=== PATIENT | male | born 1935 | race Caucasian/White ===

== ENCOUNTER 2021-01-29 10:59 | Inpatient (IN) ==
[2021-01-29] MEDS ORDERED: Ipratropium/Albuterol Neb 3 ML IH ONE (11:28)
[2021-01-29] MEDS ORDERED: methylPREDNISolone 125 MG/2 ML VIAL IVP ONE (11:28)
[2021-01-29 11:36] LABS: ABG Base Excess 5 mEq/L (-2 to 3); ABG HCO3 33 mEq/L (21-27); ABG Oxygen Saturation 97 % (95-98); ABG PCO2 58 mmHg (35-45); ABG PH 7.36 pH Units (7.32-7.45); ABG PO2 93 mmHg (85-104); ABG TCO2 34 mEq/L (20-26); Blood Gas VT 500 cc
[2021-01-29 11:48] LABS: Basophils % 0.2 %; Hemoglobin 17.1 g/dL (12.9-16.9); Immature Granulocytes % 0.5 % (0-4); Lymphocytes # 0.1 K/mcL (0.6-4.6); Lymphocytes % 0.6 %; Mean Corpuscular HGB Conc 30.4 g/dL (31.6-35.5); Mean Corpuscular Hemoglobin 30.5 pg (28.0-33.3); Mean Corpuscular Volume 100.2 fL (83.0-100.0); Mean Platelet Volume 10.7 fL (9.4-12.4); Monocytes % 0.3 %; Neutrophils # 11.3 K/mcL (1.6-8.9); Nucleated Red Blood Cells 0.2 /100 WBC (0); Platelet Count 192 K/mcL (140-400); Red Blood Count 5.61 M/mcL (4.19-5.50); Red Cell Distribution Width 14.6 % (11.5-14.5); Segmented Neutrophils % 98.4 %; White Blood Count 11.5 K/mcL (4.3-11.1)
[2021-01-29 12:04] LABS: Hematocrit 56.2 % (37.5-50.1)
[2021-01-29 12:15] LABS: Platelet Estimate Normal (Normal)
[2021-01-29] MEDS ORDERED: cefTRIAXone 1,000 MG in Water for inj. (sterile) 10 ML IVP ONE (12:37)
[2021-01-29] MEDS ORDERED: Azithromycin 500 MG in 0.9 % Sodium Chloride 250 ML IVPB ONE (12:37)
[2021-01-29 13:05] LABS: Activated Partial Thrombo Time 26.7 Seconds (26.0-36.0)
[2021-01-29 13:06] LABS: INR 1.3; Prothrombin Time 14.7 Seconds (9.4-12.1)
[2021-01-29] MEDS ORDERED: Naloxone 0.4 MG/ML INJ IVP PRN (13:19)
[2021-01-29] MEDS ORDERED: Acetaminophen 325 MG TABLET PO PRN (13:19)
[2021-01-29] MEDS ORDERED: Ondansetron ODT 4 MG TAB.RAPDIS SL PRN (13:19)
[2021-01-29 13:42] LABS: Calcium 8.6 mg/dL (8.6-10.3); Potassium 4.1 mEq/L (3.5-5.1)
[2021-01-29] MEDS ORDERED: 0.9 % Sodium Chloride 1,000 ML IVC ONE (14:38)
[2021-01-29] MEDS ORDERED: D5% in Water 1,000 ML IVC PRN (15:00)
[2021-01-29] MEDS ORDERED: *HR* Dextrose 50 % in Water (Vial) 50 ML VIAL IVP PRN (15:00)
[2021-01-29] MEDS ORDERED: Dextrose Gel 15 GM/37.5 ML TUBE PO PRN ×2 (15:00)
[2021-01-29] MEDS ORDERED: Azithromycin 500 MG in 0.9 % Sodium Chloride 250 ML IVPB SCH (15:00)
[2021-01-29] MEDS: Ipratropium 1 PUFF INHALER IH SCH ×2 (16:20→20:34)
[2021-01-29] MEDS: Levalbuterol 1 PUFF INHALER IH SCH ×2 (16:20→20:34)
[2021-01-29 17:16] LABS: Estimated Average Glucose 148 mg/dl; Hemoglobin A1C 6.8 %
[2021-01-29 17:27] LABS: Bilirubin,Urine Negative (Negative); Blood,Urine Large (Negative); Clarity,Urine Turbid (Clear); Color,Urine Brown (Yellow); Glucose,Urine (UA) Normal (Normal); Ketones,Urine Negative (Negative); Leukocyte Esterase,Urine Small (Negative); Nitrite,Urine Negative (Negative); Protein,Urine >=300 mg/dL (Neg-Trace); Urobilinogen,Urine Normal (Normal)
[2021-01-29] MEDS ORDERED: Insulin LISPRO 300 UNITS/3 ML VIAL SUBQ SCH ×2 (18:00→21:00)
[2021-01-29] MEDS: MethylPREDNISolone 40 MG/ML VIAL IVP SCH ×2 (18:08→23:47)
[2021-01-29] MEDS: *HR* Heparin 5,000 UNIT/ML VIAL SQ SCH (20:46)
[2021-01-29] MEDS: Insulin LISPRO 300 UNITS/3 ML VIAL SUBQ SCH (23:44)
[2021-01-30] MEDS: 0.9 % Sodium Chloride 1,000 ML IVC SCH ×2 (00:13→15:41)
[2021-01-30] MEDS: Ipratropium 1 PUFF INHALER IH SCH ×7 (00:27→23:06)
[2021-01-30] MEDS ORDERED: Haloperidol Lactate 5 MG/ML VIAL IVP ONE (02:08)
[2021-01-30] MEDS ORDERED: *HR* LORazepam 2 MG/ML VIAL IVP PRN (02:10)
[2021-01-30 02:55] LABS: Nucleated Red Blood Cells 0.1 /100 WBC (0)
[2021-01-30] MEDS ORDERED: *HR* LORazepam 2 MG/ML VIAL IM PRN (02:55)
[2021-01-30 02:56] LABS: Hematocrit 50.8 % (37.5-50.1); Hemoglobin 15.4 g/dL (12.9-16.9); Mean Corpuscular HGB Conc 30.3 g/dL (31.6-35.5); Mean Corpuscular Hemoglobin 31.4 pg (28.0-33.3); Mean Corpuscular Volume 103.7 fL (83.0-100.0); Mean Platelet Volume 11.1 fL (9.4-12.4); Platelet Count 170 K/mcL (140-400); Red Cell Distribution Width 14.6 % (11.5-14.5)
[2021-01-30 03:21] LABS: White Blood Count 35.3 K/mcL (4.3-11.1)
[2021-01-30] MEDS: Levalbuterol 1 PUFF INHALER IH SCH ×4 (03:35→20:17)
[2021-01-30 04:12] LABS: Anisocytosis 1+ (Not Present); Monocytes # 0.7 K/mcL (0.0-1.3); Neutrophils # 33.9 K/mcL (1.6-8.9); Platelet Estimate Normal (Normal); Toxic Granulation Present (Not Present); Toxic Vacuolation Present (Not Present)
[2021-01-30 05:00] LABS: Calcium 8.3 mg/dL (8.6-10.3); Potassium 5.5 mEq/L (3.5-5.1)
[2021-01-30 05:01] LABS: Acinetobacter baumannii by PCR Not Detected (Not Detect); Enterobacter cloacae Cmplx PCR Not Detected (Not Detect); Enterobacteriaceae by PCR Not Detected (Not Detect); Enterococcus by PCR Not Detected (Not Detect); Escherichia coli by PCR Not Detected (Not Detect); Klebsiella oxytoca by PCR Not Detected (Not Detect); Klebsiella pneumoniae by PCR Not Detected (Not Detect); Staphylococcus aureus by PCR Not Detected (Not Detect); Staphylococcus by PCR Not Detected (Not Detect); Streptococcus agalactiae(B)PCR Not Detected (Not Detect); Streptococcus by PCR Not Detected (Not Detect); Streptococcus pneumoniae PCR Not Detected (Not Detect); Streptococcus pyogenes (A) PCR Not Detected (Not Detect); mecA Methicillin-Resist Gene Not Detected (Not Detect); vanA/B Vancomycin-Resist Genes Not Detected (Not Detect)
[2021-01-30 05:02] LABS: Candida albicans by PCR Not Detected (Not Detect); Candida glabrata by PCR Not Detected (Not Detect); Candida krusei by PCR Not Detected (Not Detect); Candida parapsilosis by PCR Not Detected (Not Detect); Candida tropicalis by PCR Not Detected (Not Detect); Proteus by PCR DETECTED (Not Detect); Pseudomonas aeruginosa by PCR Not Detected (Not Detect); Serratia marcescens by PCR Not Detected (Not Detect)
[2021-01-30] MEDS: MethylPREDNISolone 40 MG/ML VIAL IVP SCH ×3 (05:41→18:25)
[2021-01-30] MEDS: *HR* Heparin 5,000 UNIT/ML VIAL SQ SCH ×3 (05:41→21:11)
[2021-01-30 07:43] LABS: ABG Base Excess 2 mEq/L (-2 to 3); ABG HCO3 35 mEq/L (21-27); ABG Oxygen Saturation 88 % (95-98); ABG PCO2 96 mmHg (35-45); ABG PH 7.17 pH Units (7.32-7.45); ABG PO2 72 mmHg (85-104); ABG TCO2 38 mEq/L (20-26)
[2021-01-30 08:34] LABS: Protein/Creatinine Ratio,Urine 1.93 mg/mg (0.00-0.20); Sodium, Urine 37.5 mEq/L
[2021-01-30] MEDS: Insulin LISPRO 300 UNITS/3 ML VIAL SUBQ SCH ×4 (08:52→21:10)
[2021-01-30] MEDS ORDERED: cefTRIAXone 1,000 MG in Water for inj. (sterile) 10 ML IVP SCH (09:00)
[2021-01-30] MEDS: Cyanocobalamin (B-12) 1,000 MCG TABLET PO SCH (09:23)
[2021-01-30] MEDS: Piperacillin/Tazobactam 3.375 GM in 0.9 % Sodium Chloride Mini Bag 100 ML IVPB SCH ×2 (09:24→18:34)
[2021-01-30] MEDS ORDERED: *HR* LORazepam 2 MG/ML VIAL IVP STA (10:11)
[2021-01-30 10:58] LABS: Calcium 8.2 mg/dL (8.6-10.3); Potassium 6.4 mEq/L (3.5-5.1)
[2021-01-30] MEDS ORDERED: haloperidoL 1 MG TABLET PO ONE (13:55)
[2021-01-30] MEDS: Dexmedetomidine HCl 400 MCG/100 ML MLS IVC SCH (15:47)
[2021-01-30 17:22] LABS: ABG Base Excess 3 mEq/L (-2 to 3); ABG HCO3 34 mEq/L (21-27); ABG Oxygen Saturation 83 % (95-98); ABG PCO2 84 mmHg (35-45); ABG PH 7.22 pH Units (7.32-7.45); ABG PO2 59 mmHg (85-104); ABG TCO2 37 mEq/L (20-26); Blood Gas VT 550 cc
[2021-01-30] MEDS ORDERED: Sodium Bicarbonate 75 MEQ in 0.45 % Sodium Chloride 1,000 ML IVC SCH (17:28)
[2021-01-30] MEDS ORDERED: SODIUM ZIRCONIUM CYCLOSILICATE 5 GM POWD.PACK PO ONE (17:40)
[2021-01-30] MEDS ORDERED: Azithromycin 500 MG in 0.9 % Sodium Chloride 250 ML IVPB SCH (18:00)
[2021-01-30 23:17] LABS: Calcium 8.2 mg/dL (8.6-10.3); Potassium 6.4 mEq/L (3.5-5.1)
[2021-01-31] MEDS: Piperacillin/Tazobactam 3.375 GM in 0.9 % Sodium Chloride Mini Bag 100 ML IVPB SCH ×3 (01:43→18:28)
[2021-01-31] MEDS: Dexmedetomidine HCl 400 MCG/100 ML MLS IVC SCH (03:51)
[2021-01-31] MEDS: Ipratropium 1 PUFF INHALER IH SCH ×6 (03:52→23:10)
[2021-01-31] MEDS: Levalbuterol 1 PUFF INHALER IH SCH ×4 (03:52→23:11)
[2021-01-31 03:56] LABS: Hematocrit 54.7 % (37.5-50.1); Hemoglobin 16.1 g/dL (12.9-16.9); Mean Corpuscular HGB Conc 29.4 g/dL (31.6-35.5); Mean Corpuscular Volume 101.9 fL (83.0-100.0); Mean Platelet Volume 11.1 fL (9.4-12.4); Platelet Count 169 K/mcL (140-400); Red Blood Count 5.37 M/mcL (4.19-5.50); Red Cell Distribution Width 14.5 % (11.5-14.5)
[2021-01-31 04:13] LABS: Calcium 8.2 mg/dL (8.6-10.3); Potassium 6.4 mEq/L (3.5-5.1)
[2021-01-31] MEDS: *HR* Heparin 5,000 UNIT/ML VIAL SQ SCH ×3 (05:34→21:46)
[2021-01-31] MEDS ORDERED: Perflutren Lipid Microsphere 1.3 ML in 0.9 % Sodium Chloride 8.7 ML IVP PRN ×2 (08:48→15:09)
[2021-01-31] MEDS: Insulin LISPRO 300 UNITS/3 ML VIAL SUBQ SCH ×4 (08:56→21:53)
[2021-01-31] MEDS ORDERED: predniSONE 20 MG TABLET PO SCH (09:00)
[2021-01-31] MEDS: Cyanocobalamin (B-12) 1,000 MCG TABLET PO SCH (10:01)
[2021-01-31] MEDS ORDERED: Haloperidol Lactate 5 MG/ML VIAL IVP PRN (10:09)
[2021-01-31] MEDS: 0.9 % Sodium Chloride 1,000 ML IVC SCH ×2 (10:10→17:14)
[2021-01-31 10:25] LABS: ABG Base Excess 4 mEq/L (-2 to 3); ABG HCO3 31 mEq/L (21-27); ABG Oxygen Saturation 91 % (95-98); ABG PCO2 58 mmHg (35-45); ABG PH 7.34 pH Units (7.32-7.45); ABG PO2 67 mmHg (85-104); ABG TCO2 33 mEq/L (20-26); Blood Gas Modality AVAPS; Blood Gas VT 550 cc
[2021-01-31] MEDS ORDERED: Cyanocobalamin (B-12) 1,000 MCG/ML VIAL IM ONE (11:00)
[2021-01-31] MEDS: Calcium Gluconate 1gm/50mL 1 GM/50 ML BAG IVPB SCH ×2 (13:05→14:14)
[2021-01-31 16:54] LABS: Potassium 4.8 mEq/L (3.5-5.1)
[2021-01-31 16:55] LABS: Calcium 8.5 mg/dL (8.6-10.3)
[2021-01-31] MEDS: Doxycycline 100 MG in 0.9 % Sodium Chloride Mini Bag 100 ML IVPB SCH (17:14)
[2021-01-31] MEDS: Haloperidol Lactate 5 MG/ML VIAL IVP SCH ×2 (17:31→23:35)
[2021-01-31 18:14] LABS: Uric Acid 8.5 mg/dL (2.3-7.6)
[2021-01-31] MEDS ORDERED: OLANZapine 10 MG VIAL IM ONE (20:00)
[2021-02-01] MEDS: Piperacillin/Tazobactam 3.375 GM in 0.9 % Sodium Chloride Mini Bag 100 ML IVPB SCH ×2 (01:51→10:15)
[2021-02-01 03:21] LABS: Basophils % 0.1 %
[2021-02-01 03:22] LABS: Hematocrit 50.7 % (37.5-50.1); Hemoglobin 15.3 g/dL (12.9-16.9); Immature Granulocytes % 0.9 % (0-4); Lymphocytes # 0.6 K/mcL (0.6-4.6); Mean Corpuscular HGB Conc 30.2 g/dL (31.6-35.5); Mean Corpuscular Hemoglobin 30.4 pg (28.0-33.3); Mean Corpuscular Volume 100.8 fL (83.0-100.0); Mean Platelet Volume 11.2 fL (9.4-12.4); Monocytes % 4.9 %; Neutrophils # 25.2 K/mcL (1.6-8.9); Platelet Count 164 K/mcL (140-400); Red Blood Count 5.03 M/mcL (4.19-5.50); Red Cell Distribution Width 14.6 % (11.5-14.5); Segmented Neutrophils % 92.1 %; White Blood Count 27.4 K/mcL (4.3-11.1)
[2021-02-01 03:28] LABS: Monocytes # 1.3 K/mcL (0.0-1.3)
[2021-02-01 03:41] LABS: Calcium 8.4 mg/dL (8.6-10.3); Potassium 4.5 mEq/L (3.5-5.1)
[2021-02-01 03:43] LABS: Toxic Granulation Present (Not Present)
[2021-02-01 03:44] LABS: Reactive Lymphocytes Present (Not Present)
[2021-02-01] MEDS: Ipratropium 1 PUFF INHALER IH SCH ×6 (04:13→23:31)
[2021-02-01] MEDS: Levalbuterol 1 PUFF INHALER IH SCH ×4 (04:14→20:18)
[2021-02-01] MEDS: Doxycycline 100 MG in 0.9 % Sodium Chloride Mini Bag 100 ML IVPB SCH ×2 (06:01→18:29)
[2021-02-01] MEDS: Haloperidol Lactate 5 MG/ML VIAL IVP SCH ×2 (06:02→21:11)
[2021-02-01] MEDS: *HR* Heparin 5,000 UNIT/ML VIAL SQ SCH ×3 (06:04→21:12)
[2021-02-01] MEDS: Insulin LISPRO 300 UNITS/3 ML VIAL SUBQ SCH ×4 (07:27→21:20)
[2021-02-01] MEDS: MethylPREDNISolone 40 MG/ML VIAL IVP SCH (08:57)
[2021-02-01] MEDS ORDERED: cefTRIAXone 2,000 MG in Water for inj. (sterile) 20 ML IVP SCH (13:00)
[2021-02-01] MEDS: 0.9 % Sodium Chloride 1,000 ML IVC SCH (16:12)
[2021-02-02] MEDS: Levalbuterol 1 PUFF INHALER IH SCH ×4 (03:40→23:40)
[2021-02-02] MEDS: Ipratropium 1 PUFF INHALER IH SCH ×6 (03:40→23:41)
[2021-02-02] MEDS: 0.9 % Sodium Chloride 1,000 ML IVC SCH (06:35)
[2021-02-02] MEDS: Doxycycline 100 MG in 0.9 % Sodium Chloride Mini Bag 100 ML IVPB SCH ×2 (06:36→17:07)
[2021-02-02] MEDS: *HR* Heparin 5,000 UNIT/ML VIAL SQ SCH ×3 (06:50→20:25)
[2021-02-02] MEDS ORDERED: *HR* Metoprolol 5 MG/5 ML VIAL IVP ONE (08:15)
[2021-02-02] MEDS: Insulin LISPRO 300 UNITS/3 ML VIAL SUBQ SCH ×4 (08:23→20:26)
[2021-02-02] MEDS: Haloperidol Lactate 5 MG/ML VIAL IVP SCH (09:01)
[2021-02-02] MEDS: MethylPREDNISolone 40 MG/ML VIAL IVP SCH (09:03)
[2021-02-02 10:01] LABS: Hematocrit 51.4 % (37.5-50.1); Hemoglobin 15.5 g/dL (12.9-16.9); Mean Corpuscular HGB Conc 30.2 g/dL (31.6-35.5); Mean Corpuscular Hemoglobin 30.3 pg (28.0-33.3); Mean Corpuscular Volume 100.6 fL (83.0-100.0); Mean Platelet Volume 11.3 fL (9.4-12.4); Platelet Count 144 K/mcL (140-400); Red Blood Count 5.11 M/mcL (4.19-5.50); Red Cell Distribution Width 14.4 % (11.5-14.5); White Blood Count 17.7 K/mcL (4.3-11.1)
[2021-02-02 10:22] LABS: BUN/Creatinine Ratio 40 (6-26); Blood Urea Nitrogen 54 mg/dL (8-23); Calcium 8.6 mg/dL (8.6-10.3); Carbon Dioxide 29 mEq/L (23-29); Chloride 108 mEq/L (98-107); Glucose 114 mg/dL (70-105); Osmolality,Calculated 312 (280-300); Potassium 4.5 mEq/L (3.5-5.1); Sodium 143 mEq/L (136-145); eGFR For African Americans > 60 (> 60); eGFR For Non-African Americans 50 (> 60)
[2021-02-02] MEDS: amLODIPine 5 MG TABLET PO SCH (13:29)
[2021-02-02] MEDS: Cefdinir 300 MG CAPSULE PO SCH (20:26)
[2021-02-02] MEDS ORDERED: QUEtiapine Fumarate 25 MG TABLET PO SCH (21:00)
[2021-02-03] MEDS: Ipratropium 1 PUFF INHALER IH SCH ×5 (04:16→21:07)
[2021-02-03] MEDS: Levalbuterol 1 PUFF INHALER IH SCH ×4 (04:16→21:07)
[2021-02-03] MEDS: *HR* Heparin 5,000 UNIT/ML VIAL SQ SCH ×4 (05:28→21:07)
[2021-02-03] MEDS: Doxycycline 100 MG in 0.9 % Sodium Chloride Mini Bag 100 ML IVPB SCH ×2 (05:29→17:03)
[2021-02-03 08:00] LABS: Hemoglobin 16.6 g/dL (12.9-16.9); Mean Corpuscular HGB Conc 29.5 g/dL (31.6-35.5); Mean Corpuscular Hemoglobin 30.9 pg (28.0-33.3); Mean Corpuscular Volume 104.6 fL (83.0-100.0); Mean Platelet Volume 11.1 fL (9.4-12.4); Platelet Count 142 K/mcL (140-400); Red Blood Count 5.38 M/mcL (4.19-5.50); Red Cell Distribution Width 14.4 % (11.5-14.5); White Blood Count 12.6 K/mcL (4.3-11.1)
[2021-02-03 08:04] LABS: Hematocrit 56.3 % (37.5-50.1)
[2021-02-03 08:21] LABS: BUN/Creatinine Ratio 38 (6-26); Blood Urea Nitrogen 48 mg/dL (8-23); Carbon Dioxide 36 mEq/L (23-29); Chloride 107 mEq/L (98-107); Glucose 101 mg/dL (70-105); Osmolality,Calculated 315 (280-300); Potassium 5.2 mEq/L (3.5-5.1); Sodium 146 mEq/L (136-145); eGFR For African Americans > 60 (> 60); eGFR For Non-African Americans 55 (> 60)
[2021-02-03] MEDS: Insulin LISPRO 300 UNITS/3 ML VIAL SUBQ SCH ×4 (08:22→20:41)
[2021-02-03 08:52] LABS: ABG Base Excess 7 mEq/L (-2 to 3); ABG HCO3 41 mEq/L (21-27); ABG Oxygen Saturation 89 % (95-98); ABG PCO2 101 mmHg (35-45); ABG PH 7.21 pH Units (7.32-7.45); ABG PO2 74 mmHg (85-104); ABG TCO2 44 mEq/L (20-26)
[2021-02-03] MEDS: Haloperidol Lactate 5 MG/ML VIAL IVP PRN (10:25)
[2021-02-03] MEDS: Budesonide/Formoterol 80/4.5 1 PUFF INH IH SCH ×2 (11:29→21:07)
[2021-02-03] MEDS: amLODIPine 5 MG TABLET PO SCH (15:08)
[2021-02-03] MEDS: Cefdinir 300 MG CAPSULE PO SCH ×2 (15:08→21:08)
[2021-02-03] MEDS: predniSONE 20 MG TABLET PO SCH (15:09)
[2021-02-03 16:46] LABS: ABG Base Excess 7 mEq/L (-2 to 3); ABG HCO3 36 mEq/L (21-27); ABG Oxygen Saturation 92 % (95-98); ABG PCO2 68 mmHg (35-45); ABG PH 7.34 pH Units (7.32-7.45); ABG PO2 71 mmHg (85-104); ABG TCO2 38 mEq/L (20-26); Blood Gas Modality Bipap; Blood Gas Pressure Support 13 cm H2O; Blood Gas VT 550 cc
[2021-02-03] MEDS ORDERED: Haloperidol Lactate 5 MG/ML VIAL IVP ONE (21:00)
[2021-02-04] MEDS: Ipratropium 1 PUFF INHALER IH SCH ×7 (00:03→23:42)
[2021-02-04] MEDS: Levalbuterol 1 PUFF INHALER IH SCH ×4 (04:07→20:18)
[2021-02-04] MEDS: Doxycycline 100 MG in 0.9 % Sodium Chloride Mini Bag 100 ML IVPB SCH ×2 (06:01→17:46)
[2021-02-04] MEDS: *HR* Heparin 5,000 UNIT/ML VIAL SQ SCH ×3 (06:02→21:46)
[2021-02-04 06:48] LABS: Hematocrit 52.5 % (37.5-50.1); Hemoglobin 15.8 g/dL (12.9-16.9); Mean Corpuscular HGB Conc 30.1 g/dL (31.6-35.5); Mean Corpuscular Hemoglobin 29.9 pg (28.0-33.3); Mean Corpuscular Volume 99.2 fL (83.0-100.0); Mean Platelet Volume 12.1 fL (9.4-12.4); Platelet Count 111 K/mcL (140-400); Red Blood Count 5.29 M/mcL (4.19-5.50); Red Cell Distribution Width 14.2 % (11.5-14.5); White Blood Count 8.9 K/mcL (4.3-11.1)
[2021-02-04] MEDS ORDERED: *HR* Metoprolol 5 MG/5 ML VIAL IVP ONE (07:02)
[2021-02-04 07:06] LABS: BUN/Creatinine Ratio 40 (6-26); Blood Urea Nitrogen 41 mg/dL (8-23); Carbon Dioxide 32 mEq/L (23-29); Chloride 105 mEq/L (98-107); Glucose 77 mg/dL (70-105); Osmolality,Calculated 307 (280-300); Potassium 4.8 mEq/L (3.5-5.1); Sodium 144 mEq/L (136-145); eGFR For African Americans > 60 (> 60); eGFR For Non-African Americans > 60 (> 60)
[2021-02-04] MEDS: Insulin LISPRO 300 UNITS/3 ML VIAL SUBQ SCH ×4 (07:29→19:20)
[2021-02-04] MEDS: predniSONE 20 MG TABLET PO SCH (08:12)
[2021-02-04] MEDS: Cefdinir 300 MG CAPSULE PO SCH ×2 (08:12→21:46)
[2021-02-04] MEDS: amLODIPine 5 MG TABLET PO SCH (08:12)
[2021-02-04] MEDS: Budesonide/Formoterol 80/4.5 1 PUFF INH IH SCH ×2 (10:52→20:18)
[2021-02-04 10:56] LABS: Calcium 9.1 mg/dL (8.6-10.3)
[2021-02-04] MEDS: Haloperidol Lactate 5 MG/ML VIAL IVP PRN ×2 (15:57→19:25)
[2021-02-05 00:44] LABS: Hematocrit 52.9 % (37.5-50.1); Hemoglobin 16.5 g/dL (12.9-16.9); Mean Corpuscular HGB Conc 31.2 g/dL (31.6-35.5); Mean Corpuscular Hemoglobin 30.7 pg (28.0-33.3); Mean Corpuscular Volume 98.5 fL (83.0-100.0); Red Blood Count 5.37 M/mcL (4.19-5.50); Red Cell Distribution Width 13.7 % (11.5-14.5); White Blood Count 8.9 K/mcL (4.3-11.1)
[2021-02-05 01:21] LABS: BUN/Creatinine Ratio 35 (6-26); Blood Urea Nitrogen 41 mg/dL (8-23); Calcium 9.1 mg/dL (8.6-10.3); Carbon Dioxide 29 mEq/L (23-29); Chloride 100 mEq/L (98-107); Glucose 85 mg/dL (70-105); Osmolality,Calculated 297 (280-300); Potassium 4.8 mEq/L (3.5-5.1); Sodium 139 mEq/L (136-145); eGFR For African Americans > 60 (> 60); eGFR For Non-African Americans 59 (> 60)
[2021-02-05] MEDS: Levalbuterol 1 PUFF INHALER IH SCH ×4 (03:21→20:20)
[2021-02-05] MEDS: Ipratropium 1 PUFF INHALER IH SCH ×6 (03:22→23:46)
[2021-02-05 04:48] LABS: ABG Base Excess 11 mEq/L (-2 to 3); ABG HCO3 41 mEq/L (21-27); ABG Oxygen Saturation 89 % (95-98); ABG PCO2 70 mmHg (35-45); ABG PH 7.37 pH Units (7.32-7.45); ABG PO2 61 mmHg (85-104); ABG TCO2 43 mEq/L (20-26)
[2021-02-05] MEDS: *HR* Heparin 5,000 UNIT/ML VIAL SQ SCH ×3 (05:28→20:47)
[2021-02-05] MEDS: Doxycycline 100 MG in 0.9 % Sodium Chloride Mini Bag 100 ML IVPB SCH (05:28)
[2021-02-05] MEDS: Insulin LISPRO 300 UNITS/3 ML VIAL SUBQ SCH ×4 (07:40→20:53)
[2021-02-05] MEDS: Budesonide/Formoterol 80/4.5 1 PUFF INH IH SCH ×2 (07:52→20:20)
[2021-02-05] MEDS: amLODIPine 5 MG TABLET PO SCH (08:21)
[2021-02-05] MEDS: predniSONE 20 MG TABLET PO SCH (08:22)
[2021-02-05] MEDS: Cefdinir 300 MG CAPSULE PO SCH ×2 (08:22→20:47)
[2021-02-05] MEDS: Haloperidol Lactate 5 MG/ML VIAL IVP PRN (15:06)
[2021-02-05] MEDS ORDERED: Haloperidol Lactate 5 MG/ML VIAL IM PRN (18:19)
[2021-02-06 03:03] LABS: Hematocrit 54.5 % (37.5-50.1); Hemoglobin 16.7 g/dL (12.9-16.9); Mean Corpuscular HGB Conc 30.6 g/dL (31.6-35.5); Mean Corpuscular Volume 97.8 fL (83.0-100.0); Mean Platelet Volume 11.4 fL (9.4-12.4); Platelet Count 149 K/mcL (140-400); Red Blood Count 5.57 M/mcL (4.19-5.50); Red Cell Distribution Width 13.7 % (11.5-14.5); White Blood Count 8.7 K/mcL (4.3-11.1)
[2021-02-06 03:20] LABS: BUN/Creatinine Ratio 36 (6-26); Blood Urea Nitrogen 46 mg/dL (8-23); Calcium 8.9 mg/dL (8.6-10.3); Carbon Dioxide 30 mEq/L (23-29); Chloride 100 mEq/L (98-107); Glucose 143 mg/dL (70-105); Osmolality,Calculated 298 (280-300); Sodium 137 mEq/L (136-145); eGFR For African Americans > 60 (> 60); eGFR For Non-African Americans 54 (> 60)
[2021-02-06] MEDS: Levalbuterol 1 PUFF INHALER IH SCH ×4 (03:25→19:22)
[2021-02-06] MEDS: Ipratropium 1 PUFF INHALER IH SCH ×6 (03:26→23:16)
[2021-02-06] MEDS: *HR* Heparin 5,000 UNIT/ML VIAL SQ SCH ×3 (06:18→21:11)
[2021-02-06] MEDS: Budesonide/Formoterol 80/4.5 1 PUFF INH IH SCH ×2 (08:03→19:23)
[2021-02-06] MEDS: Cefdinir 300 MG CAPSULE PO SCH ×2 (08:35→21:10)
[2021-02-06] MEDS: amLODIPine 5 MG TABLET PO SCH (08:35)
[2021-02-06] MEDS: Insulin LISPRO 300 UNITS/3 ML VIAL SUBQ SCH ×4 (08:35→21:11)
[2021-02-06] MEDS: predniSONE 20 MG TABLET PO SCH (08:35)
[2021-02-07 02:07] LABS: BUN/Creatinine Ratio 34 (6-26); Blood Urea Nitrogen 43 mg/dL (8-23); Calcium 8.3 mg/dL (8.6-10.3); Carbon Dioxide 25 mEq/L (23-29); Chloride 104 mEq/L (98-107); Glucose 298 mg/dL (70-105); Osmolality,Calculated 308 (280-300); Potassium 3.4 mEq/L (3.5-5.1); Sodium 138 mEq/L (136-145); eGFR For African Americans > 60 (> 60); eGFR For Non-African Americans 55 (> 60)
[2021-02-07 02:11] LABS: Hematocrit 51.1 % (37.5-50.1); Mean Corpuscular HGB Conc 30.9 g/dL (31.6-35.5); Mean Corpuscular Hemoglobin 30.2 pg (28.0-33.3); Mean Platelet Volume 11.7 fL (9.4-12.4); Platelet Count 175 K/mcL (140-400); Red Blood Count 5.23 M/mcL (4.19-5.50); Red Cell Distribution Width 13.7 % (11.5-14.5)
[2021-02-07 02:15] LABS: Hemoglobin 15.8 g/dL (12.9-16.9); Mean Corpuscular Volume 97.7 fL (83.0-100.0); White Blood Count 9.1 K/mcL (4.3-11.1)
[2021-02-07] MEDS: Ipratropium 1 PUFF INHALER IH SCH ×6 (03:19→23:39)
[2021-02-07] MEDS: Levalbuterol 1 PUFF INHALER IH SCH ×4 (03:20→19:57)
[2021-02-07] MEDS: *HR* Heparin 5,000 UNIT/ML VIAL SQ SCH ×3 (06:20→23:41)
[2021-02-07] MEDS: Budesonide/Formoterol 80/4.5 1 PUFF INH IH SCH ×2 (08:10→19:57)
[2021-02-07] MEDS: Insulin LISPRO 300 UNITS/3 ML VIAL SUBQ SCH ×4 (08:53→23:34)
[2021-02-07] MEDS: Cefdinir 300 MG CAPSULE PO SCH ×2 (09:25→23:32)
[2021-02-07] MEDS: amLODIPine 5 MG TABLET PO SCH (09:26)
[2021-02-07] MEDS: predniSONE 20 MG TABLET PO SCH (09:26)
[2021-02-07] MEDS ORDERED: haloperidoL 1 MG TABLET PO SCH (21:00)
[2021-02-08] MEDS: Ipratropium 1 PUFF INHALER IH SCH ×4 (04:33→16:23)
[2021-02-08] MEDS: Levalbuterol 1 PUFF INHALER IH SCH ×3 (04:34→16:23)
[2021-02-08] MEDS: *HR* Heparin 5,000 UNIT/ML VIAL SQ SCH ×2 (06:30→15:32)
[2021-02-08] MEDS: Budesonide/Formoterol 80/4.5 1 PUFF INH IH SCH (07:21)
[2021-02-08] MEDS: Cefdinir 300 MG CAPSULE PO SCH (09:30)
[2021-02-08] MEDS: amLODIPine 5 MG TABLET PO SCH (09:30)
[2021-02-08] MEDS: predniSONE 20 MG TABLET PO SCH (09:30)
[2021-02-08] MEDS: Insulin LISPRO 300 UNITS/3 ML VIAL SUBQ SCH ×2 (09:32→12:33)
[2021-02-08 11:10] VITALS: BP 131/82; PULSE 60; TEMP 97.8; O2SAT 92
[2021-02-08 13:33] LABS: Influenza A PCR Negative (Negative); Influenza B PCR Negative (Negative); Resp. Syncytial Virus PCR Negative (Negative)
[2021-02-08 13:34] LABS: SARS-CoV-2 by PCR (In House) Negative (Negative)
[2021-02-09] MEDS: Budesonide/Formoterol 80/4.5 1 PUFF INH IH SCH (04:20)
[2021-02-09] MEDS: Levalbuterol 1 PUFF INHALER IH SCH ×2 (04:20→04:21)
[2021-02-09] MEDS: Ipratropium 1 PUFF INHALER IH SCH ×2 (04:20→04:21)
== END 2021-02-08 19:00 | DRG 871 ==
LOC: EMEROOARM 10:59 → 2ANU 10:59 → 2NNU 01-30 15:18 → SUATTDRO 01-31 15:38 → 3NENU 02-05 23:45
PROVIDERS: ADMIT Internal Medicine; ATTEND Internal Medicine

== ENCOUNTER 2021-04-09 11:45 | Inpatient (IN) ==
[2021-04-09 13:20] LABS: VBG HCO3 36 mEq/L (21-27); VBG PCO2 74 mmHg (41-51); VBG PH 7.29 pH Units (7.32-7.42); VBG PO2 43 mmHg (25-50)
[2021-04-09 13:21] LABS: Basophils % 0.5 %; Eosinophils # 0.1 K/mcL (0.0-0.6); Eosinophils % 1.5 %; Hematocrit 45.8 % (37.5-50.1); Immature Granulocytes % 0.4 % (0-4); Lymphocytes # 0.9 K/mcL (0.6-4.6); Lymphocytes % 10.6 %; Mean Corpuscular HGB Conc 30.6 g/dL (31.6-35.5); Mean Corpuscular Hemoglobin 29.9 pg (28.0-33.3); Mean Corpuscular Volume 97.9 fL (83.0-100.0); Mean Platelet Volume 10.7 fL (9.4-12.4); Monocytes % 12.7 %; Neutrophils # 6.1 K/mcL (1.6-8.9); Platelet Count 273 K/mcL (140-400); Red Blood Count 4.68 M/mcL (4.19-5.50); Red Cell Distribution Width 14.8 % (11.5-14.5); Segmented Neutrophils % 74.3 %; White Blood Count 8.2 K/mcL (4.3-11.1)
[2021-04-09] MEDS ORDERED: Ipratropium/Albuterol Neb 3 ML IH ONE (13:47)
[2021-04-09 13:53] LABS: Alanine Aminotransferase 8 Units/L (7-52); Albumin 3.3 g/dL (3.5-5.7); Albumin/Globulin Ratio 0.8 (1.1-2.2); Alkaline Phosphatase 56 Units/L (34-104); Aspartate Amino Transferase 12 Units/L (13-39); BUN/Creatinine Ratio 20 (6-26); Bilirubin,Total 0.4 mg/dL (0.3-1.0); Blood Urea Nitrogen 31 mg/dL (8-23); Calcium 8.8 mg/dL (8.6-10.3); Carbon Dioxide 34 mEq/L (23-29); Chloride 98 mEq/L (98-107); Globulin 3.9 g/dL (2.4-3.5); Glucose 91 mg/dL (70-105); Osmolality,Calculated 294 (280-300); Potassium 4.3 mEq/L (3.5-5.1); Sodium 139 mEq/L (136-145); Total Protein 7.2 g/dL (6.4-8.9); Troponin I < 0.03 ng/mL (< 0.04); eGFR For African Americans 52 (> 60); eGFR For Non-African Americans 43 (> 60)
[2021-04-09] MEDS ORDERED: Furosemide 40 MG/4 ML VIAL IVP ONE (14:08)
[2021-04-09 14:57] LABS: Activated Partial Thrombo Time 34.5 Seconds (26.0-36.0); INR 1.2; Prothrombin Time 13.3 Seconds (9.4-12.1)
[2021-04-09 15:07] LABS: Influenza A PCR Negative (Negative); Influenza B PCR Negative (Negative); Resp. Syncytial Virus PCR Negative (Negative)
[2021-04-09 15:08] LABS: SARS-CoV-2 by PCR (In House) Negative (Negative)
[2021-04-09] MEDS ORDERED: methylPREDNISolone 125 MG/2 ML VIAL IVP ONE (16:43)
[2021-04-09] MEDS ORDERED: Ondansetron 4 MG/2 ML VIAL IVP PRN (17:28)
[2021-04-09] MEDS ORDERED: Naloxone 0.4 MG/ML INJ IVP PRN (17:28)
[2021-04-09] MEDS: haloperidoL 1 MG TABLET PO SCH (22:23)
[2021-04-10] MEDS ORDERED: Dexmedetomidine HCl 400 MCG/100 ML MLS IVC SCH (01:30)
[2021-04-10] MEDS ORDERED: *HR* LORazepam 2 MG/ML VIAL IVP ONE (01:37)
[2021-04-10 02:44] LABS: Hematocrit 44.3 % (37.5-50.1); Hemoglobin 13.6 g/dL (12.9-16.9); Mean Corpuscular HGB Conc 30.7 g/dL (31.6-35.5); Mean Corpuscular Hemoglobin 30.1 pg (28.0-33.3); Mean Platelet Volume 10.4 fL (9.4-12.4); Platelet Count 236 K/mcL (140-400); Red Blood Count 4.52 M/mcL (4.19-5.50); Red Cell Distribution Width 14.7 % (11.5-14.5); Segmented Neutrophils % 76.4 %; White Blood Count 8.3 K/mcL (4.3-11.1)
[2021-04-10 02:45] LABS: Basophils % 0.4 %; Eosinophils # 0.1 K/mcL (0.0-0.6); Eosinophils % 1.4 %; Immature Granulocytes % 0.4 % (0-4); Lymphocytes # 0.8 K/mcL (0.6-4.6); Monocytes % 11.4 %; Neutrophils # 6.4 K/mcL (1.6-8.9)
[2021-04-10 02:51] LABS: Calcium 8.6 mg/dL (8.6-10.3); Potassium 4.2 mEq/L (3.5-5.1)
[2021-04-10 02:56] LABS: VBG HCO3 34 mEq/L (21-27); VBG PCO2 54 mmHg (41-51); VBG PH 7.41 pH Units (7.32-7.42); VBG PO2 187 mmHg (25-50)
[2021-04-10] MEDS: *HR* Heparin 5,000 UNIT/ML VIAL SQ SCH ×3 (05:26→21:15)
[2021-04-10] MEDS ORDERED: Haloperidol Lactate 5 MG/ML VIAL IVP PRN (07:49)
[2021-04-10] MEDS: Furosemide 20 MG/2 ML VIAL IVP SCH ×2 (09:27→21:11)
[2021-04-10] MEDS: Cyanocobalamin (B-12) 1,000 MCG TABLET PO SCH (09:28)
[2021-04-10] MEDS: Levalbuterol 1 PUFF INHALER IH SCH ×3 (10:02→22:17)
[2021-04-10] MEDS: Budesonide/Formoterol 80/4.5 1 PUFF INH IH SCH ×2 (10:03→22:16)
[2021-04-10] MEDS ORDERED: QUEtiapine Fumarate 25 MG TABLET PO SCH (21:00)
[2021-04-10] MEDS: haloperidoL 1 MG TABLET PO SCH (21:10)
[2021-04-10] MEDS ORDERED: *HR* LORazepam 2 MG/ML VIAL IM STA (21:52)
[2021-04-11 01:17] LABS: Calcium 8.5 mg/dL (8.6-10.3); Potassium 4.1 mEq/L (3.5-5.1)
[2021-04-11] MEDS: Levalbuterol 1 PUFF INHALER IH SCH ×2 (03:35→09:38)
[2021-04-11] MEDS: *HR* Heparin 5,000 UNIT/ML VIAL SQ SCH (04:52)
[2021-04-11] MEDS ORDERED: Haloperidol Lactate 5 MG/ML VIAL IM PRN (07:46)
[2021-04-11] MEDS: Furosemide 20 MG/2 ML VIAL IVP SCH (07:50)
[2021-04-11] MEDS: Cyanocobalamin (B-12) 1,000 MCG TABLET PO SCH (07:50)
[2021-04-11 08:18] VITALS: BP 132/78; PULSE 84; TEMP 97.8
[2021-04-11 08:19] VITALS: O2SAT 93
[2021-04-11] MEDS ORDERED: Metoprolol XL (24 HR) Succ 25 MG TAB.ER.24H PO SCH (09:00)
[2021-04-11] MEDS ORDERED: QUEtiapine Fumarate 25 MG TABLET PO SCH (09:00)
[2021-04-11] MEDS: Budesonide/Formoterol 80/4.5 1 PUFF INH IH SCH (09:38)
== END 2021-04-11 14:19 | disposition home health service (06) | DRG 291 ==
LOC: EMEROOARM 11:45 → 2NENU 11:45
PROVIDERS: ADMIT Family Medicine; ATTEND Family Medicine

== ENCOUNTER 2021-08-14 07:02 | Inpatient (IN) ==
[2021-08-14] MEDS ORDERED: Ipratropium/Albuterol Neb 3 ML IH ONE (08:05)
[2021-08-14 09:14] LABS: ABG Base Excess 8 mEq/L (-2 to 3); ABG HCO3 40 mEq/L (21-27); ABG Oxygen Saturation 92 % (95-98); ABG PCO2 94 mmHg (35-45); ABG PH 7.24 pH Units (7.32-7.45); ABG PO2 78 mmHg (85-104); ABG TCO2 43 mEq/L (20-26)
[2021-08-14 09:32] LABS: Basophils % 0.3 %; Eosinophils # 0.1 K/mcL (0.0-0.6); Hematocrit 48.9 % (37.5-50.1); Hemoglobin 14.5 g/dL (12.9-16.9); Immature Granulocytes % 0.5 % (0-4); Lymphocytes % 12.8 %; Mean Corpuscular HGB Conc 29.7 g/dL (31.6-35.5); Mean Corpuscular Hemoglobin 30.7 pg (28.0-33.3); Mean Corpuscular Volume 103.4 fL (83.0-100.0); Mean Platelet Volume 11.2 fL (9.4-12.4); Monocytes # 0.9 K/mcL (0.0-1.3); Monocytes % 11.7 %; Neutrophils # 5.8 K/mcL (1.6-8.9); Platelet Count 202 K/mcL (140-400); Red Blood Count 4.73 M/mcL (4.19-5.50); Red Cell Distribution Width 14.2 % (11.5-14.5); Segmented Neutrophils % 73.7 %; White Blood Count 7.8 K/mcL (4.3-11.1)
[2021-08-14 09:41] LABS: Influenza A PCR Negative (Negative); Influenza B PCR Negative (Negative); Resp. Syncytial Virus PCR Negative (Negative)
[2021-08-14 09:44] LABS: BUN/Creatinine Ratio 20 (6-26); Blood Urea Nitrogen 29 mg/dL (8-23); Calcium 8.6 mg/dL (8.6-10.3); Carbon Dioxide 37 mEq/L (23-29); Chloride 97 mEq/L (98-107); Glucose 127 mg/dL (70-105); Osmolality,Calculated 295 (280-300); Potassium 4.2 mEq/L (3.5-5.1); Sodium 139 mEq/L (136-145); eGFR For African Americans 56 (> 60); eGFR For Non-African Americans 46 (> 60)
[2021-08-14 09:45] LABS: Troponin I < 0.03 ng/mL (< 0.04)
[2021-08-14 09:52] LABS: INR 1.1; Prothrombin Time 12.3 Seconds (9.4-12.1)
[2021-08-14 09:54] LABS: Activated Partial Thrombo Time 29.1 Seconds (26.0-36.0)
[2021-08-14 10:05] LABS: SARS-CoV-2 by PCR (In House) Negative (Negative)
[2021-08-14] MEDS ORDERED: *HR* LORazepam 2 MG/ML VIAL IVP ONE (10:09)
[2021-08-14 11:06] LABS: Mixed Venous Blood pCO2 94 mmHg (44-46); Mixed Venous Blood pH 7.24 pH Units (7.34-7.36); Mixed Venous Blood pO2 58 mmHg (35-45)
[2021-08-14 12:13] LABS: Bacteria,Urine Moderate per hpf (None-Few); Bilirubin,Urine Negative (Negative); Blood,Urine Trace (Negative); Budding Yeast,Urine Many per hpf (None Seen); Clarity,Urine Turbid (Clear); Color,Urine Yellow (Yellow); Glucose,Urine (UA) Normal (Normal); Hyaline Casts,Urine Few per lpf (None Seen); Ketones,Urine Negative (Negative); Leukocyte Esterase,Urine Large (Negative); Mucus,Urine Few per lpf (None-Few); Nitrite,Urine Negative (Negative); PH,Urine 7.5 pH Units (5.0-8.0); Protein,Urine 70 mg/dL (Neg-Trace); Specific Gravity,Urine 1.013 (1.010-1.025); Squamous Epithelial Cell,Urine Few per hpf (None-Few); Urobilinogen,Urine Normal (Normal); WBC,Urine TNTC per hpf (0-3)
[2021-08-14] MEDS ORDERED: cefTRIAXone 1,000 MG in 0.9 % Sodium Chloride 10 ML IVP ONE (13:00)
[2021-08-14 13:01] LABS: ABG Base Excess 8 mEq/L (-2 to 3); ABG HCO3 39 mEq/L (21-27); ABG Oxygen Saturation 96 % (95-98); ABG PCO2 84 mmHg (35-45); ABG PH 7.28 pH Units (7.32-7.45); ABG PO2 96 mmHg (85-104); ABG TCO2 42 mEq/L (20-26)
[2021-08-14] MEDS ORDERED: methylPREDNISolone 125 MG/2 ML VIAL IVP ONE (13:23)
[2021-08-14] MEDS ORDERED: Naloxone 0.4 MG/ML INJ IVP PRN (13:28)
[2021-08-14] MEDS ORDERED: Ondansetron 4 MG/2 ML VIAL IVP PRN (13:28)
[2021-08-14] MEDS ORDERED: Furosemide 20 MG/2 ML VIAL IVP ONE ×2 (13:49→18:00)
[2021-08-14] MEDS ORDERED: cefTRIAXone 1,000 MG in 0.9 % Sodium Chloride 10 ML IVP SCH (15:00)
[2021-08-14] MEDS: Ipratropium/Albuterol Neb 3 ML IH SCH ×2 (15:50→19:58)
[2021-08-14 16:00] LABS: ABG Base Excess 7 mEq/L (-2 to 3); ABG HCO3 39 mEq/L (21-27); ABG Oxygen Saturation 94 % (95-98); ABG PCO2 95 mmHg (35-45); ABG PH 7.22 pH Units (7.32-7.45); ABG PO2 91 mmHg (85-104); ABG TCO2 42 mEq/L (20-26); Blood Gas Pressure Support 18 cm H2O
[2021-08-14] MEDS: Azithromycin 500 MG in 0.9 % Sodium Chloride 250 ML IVPB SCH (16:20)
[2021-08-14] MEDS: *HR* Heparin 5,000 UNIT/ML VIAL SQ SCH ×2 (16:21→21:34)
[2021-08-14] MEDS: cefTRIAXone 1,000 MG in 0.9 % Sodium Chloride 10 ML IVP SCH (17:24)
[2021-08-14 20:02] LABS: ABG Base Excess 7 mEq/L (-2 to 3); ABG HCO3 38 mEq/L (21-27); ABG Oxygen Saturation 90 % (95-98); ABG PCO2 88 mmHg (35-45); ABG PH 7.25 pH Units (7.32-7.45); ABG PO2 73 mmHg (85-104); ABG TCO2 41 mEq/L (20-26); Blood Gas Modality AVAPS; Blood Gas VT 450 cc
[2021-08-14] MEDS: MethylPREDNISolone 40 MG/ML VIAL IVP SCH (21:34)
[2021-08-15] MEDS: Ipratropium/Albuterol Neb 3 ML IH SCH ×7 (03:55→23:41)
[2021-08-15 03:59] LABS: ABG Base Excess 7 mEq/L (-2 to 3); ABG HCO3 36 mEq/L (21-27); ABG Oxygen Saturation 94 % (95-98); ABG PCO2 68 mmHg (35-45); ABG PH 7.33 pH Units (7.32-7.45); ABG PO2 81 mmHg (85-104); ABG TCO2 38 mEq/L (20-26); Blood Gas Modality AVAPS; Blood Gas VT 550 cc
[2021-08-15] MEDS: *HR* Heparin 5,000 UNIT/ML VIAL SQ SCH ×3 (05:23→20:37)
[2021-08-15] MEDS: MethylPREDNISolone 40 MG/ML VIAL IVP SCH ×3 (05:24→20:37)
[2021-08-15 05:38] LABS: Hematocrit 47.5 % (37.5-50.1); Hemoglobin 14.2 g/dL (12.9-16.9); Immature Granulocytes % 0.3 % (0-4); Lymphocytes # 0.4 K/mcL (0.6-4.6); Lymphocytes % 5.3 %; Mean Corpuscular HGB Conc 29.9 g/dL (31.6-35.5); Mean Corpuscular Hemoglobin 30.6 pg (28.0-33.3); Mean Corpuscular Volume 102.4 fL (83.0-100.0); Mean Platelet Volume 10.8 fL (9.4-12.4); Monocytes # 0.1 K/mcL (0.0-1.3); Monocytes % 1.5 %; Neutrophils # 6.9 K/mcL (1.6-8.9); Platelet Count 194 K/mcL (140-400); Red Blood Count 4.64 M/mcL (4.19-5.50); Red Cell Distribution Width 13.9 % (11.5-14.5); Segmented Neutrophils % 92.9 %; White Blood Count 7.4 K/mcL (4.3-11.1)
[2021-08-15 05:57] LABS: Calcium 8.7 mg/dL (8.6-10.3); Magnesium 1.8 mg/dL (1.6-2.6); Potassium 4.7 mEq/L (3.5-5.1)
[2021-08-15] MEDS ORDERED: cefTRIAXone 1,000 MG in 0.9 % Sodium Chloride Mini Bag 100 ML IVPB SCH (09:00)
[2021-08-15] MEDS: Furosemide 20 MG/2 ML VIAL IVP SCH ×2 (09:13→20:37)
[2021-08-15 11:21] LABS: ABG Base Excess 9 mEq/L (-2 to 3); ABG HCO3 36 mEq/L (21-27); ABG Oxygen Saturation 100 % (95-98); ABG PCO2 61 mmHg (35-45); ABG PH 7.38 pH Units (7.32-7.45); ABG PO2 178 mmHg (85-104); ABG TCO2 38 mEq/L (20-26)
[2021-08-15] MEDS: Cyanocobalamin (B-12) 1,000 MCG TABLET PO SCH (11:52)
[2021-08-15] MEDS: Azithromycin 500 MG in 0.9 % Sodium Chloride 250 ML IVPB SCH (14:07)
[2021-08-15] MEDS ORDERED: *HR* Metoprolol 5 MG/5 ML VIAL IVP STA (16:58)
[2021-08-15] MEDS: cefTRIAXone 1,000 MG in 0.9 % Sodium Chloride 10 ML IVP SCH (17:35)
[2021-08-15] MEDS: haloperidoL 1 MG TABLET PO SCH (20:36)
[2021-08-16] MEDS ORDERED: *HR* Metoprolol 5 MG/5 ML VIAL IVP ONE ×2 (02:49→18:59)
[2021-08-16] MEDS: Ipratropium/Albuterol Neb 3 ML IH SCH ×6 (04:37→23:23)
[2021-08-16 05:13] LABS: Basophils % 0.1 %; Hematocrit 44.9 % (37.5-50.1); Hemoglobin 13.9 g/dL (12.9-16.9); Immature Granulocytes % 0.4 % (0-4); Lymphocytes # 0.4 K/mcL (0.6-4.6); Lymphocytes % 2.8 %; Mean Corpuscular Hemoglobin 30.6 pg (28.0-33.3); Mean Corpuscular Volume 98.9 fL (83.0-100.0); Mean Platelet Volume 10.7 fL (9.4-12.4); Monocytes # 0.5 K/mcL (0.0-1.3); Monocytes % 3.4 %; Neutrophils # 13.1 K/mcL (1.6-8.9); Platelet Count 192 K/mcL (140-400); Red Blood Count 4.54 M/mcL (4.19-5.50); Red Cell Distribution Width 14.1 % (11.5-14.5); Segmented Neutrophils % 93.3 %
[2021-08-16 05:31] LABS: Albumin 3.4 g/dL (3.5-5.7); Albumin/Globulin Ratio 1.2 (1.1-2.2); Bilirubin,Total 0.3 mg/dL (0.3-1.0); Calcium 8.5 mg/dL (8.6-10.3); Globulin 2.8 g/dL (2.4-3.5); Magnesium 2.2 mg/dL (1.6-2.6); Potassium 4.6 mEq/L (3.5-5.1); Total Protein 6.2 g/dL (6.4-8.9)
[2021-08-16] MEDS: *HR* Heparin 5,000 UNIT/ML VIAL SQ SCH ×3 (06:43→20:59)
[2021-08-16] MEDS: MethylPREDNISolone 40 MG/ML VIAL IVP SCH ×3 (06:43→20:59)
[2021-08-16] MEDS: Cyanocobalamin (B-12) 1,000 MCG TABLET PO SCH (09:18)
[2021-08-16] MEDS: Furosemide 20 MG/2 ML VIAL IVP SCH ×2 (09:18→20:59)
[2021-08-16 12:39] LABS: Hemoglobin 13.6 g/dL (12.9-16.9)
[2021-08-16] MEDS: QUEtiapine Fumarate 25 MG TABLET PO SCH ×2 (14:47→20:58)
[2021-08-16] MEDS: Azithromycin 500 MG in 0.9 % Sodium Chloride 250 ML IVPB SCH (17:15)
[2021-08-16] MEDS: cefTRIAXone 1,000 MG in 0.9 % Sodium Chloride 10 ML IVP SCH (18:25)
[2021-08-16 19:09] LABS: Hematocrit 44.3 % (37.5-50.1); Hemoglobin 13.7 g/dL (12.9-16.9)
[2021-08-16] MEDS: haloperidoL 1 MG TABLET PO SCH (20:58)
[2021-08-17] MEDS: Ipratropium/Albuterol Neb 3 ML IH SCH ×3 (03:32→11:46)
[2021-08-17] MEDS: *HR* Heparin 5,000 UNIT/ML VIAL SQ SCH (05:17)
[2021-08-17 08:21] LABS: Hematocrit 41.9 % (37.5-50.1); Hemoglobin 13.2 g/dL (12.9-16.9); Immature Granulocytes % 0.5 % (0-4); Lymphocytes # 0.3 K/mcL (0.6-4.6); Lymphocytes % 2.3 %; Mean Corpuscular HGB Conc 31.5 g/dL (31.6-35.5); Mean Corpuscular Hemoglobin 31.3 pg (28.0-33.3); Mean Corpuscular Volume 99.3 fL (83.0-100.0); Mean Platelet Volume 11.3 fL (9.4-12.4); Monocytes # 0.6 K/mcL (0.0-1.3); Monocytes % 4.5 %; Neutrophils # 11.9 K/mcL (1.6-8.9); Platelet Count 186 K/mcL (140-400); Red Blood Count 4.22 M/mcL (4.19-5.50); Segmented Neutrophils % 92.7 %; White Blood Count 12.9 K/mcL (4.3-11.1)
[2021-08-17 08:40] LABS: Calcium 8.5 mg/dL (8.6-10.3); Potassium 4.9 mEq/L (3.5-5.1)
[2021-08-17] MEDS: MethylPREDNISolone 40 MG/ML VIAL IVP SCH (09:14)
[2021-08-17] MEDS: Furosemide 20 MG/2 ML VIAL IVP SCH (09:15)
[2021-08-17] MEDS: QUEtiapine Fumarate 25 MG TABLET PO SCH (09:15)
[2021-08-17] MEDS: Cyanocobalamin (B-12) 1,000 MCG TABLET PO SCH (09:15)
[2021-08-17 12:16] VITALS: TEMP 99.3
[2021-08-17 12:17] VITALS: BP 134/63; PULSE 87; O2SAT 92
== END 2021-08-17 13:45 | disposition home health service (06) | DRG 291 ==
LOC: EMEROOARM 07:02 → 2NNU 07:02 → SUATTDRO 13:55 → 2NNU 14:26
PROVIDERS: ADMIT Hospitalist; ATTEND Family Medicine